=== PATIENT | female | born 1985 | race Caucasian/White ===

== ENCOUNTER 2017-11-06 19:03 | Emergency (ER) | payer OTHER ==
[~2017-11-06] VITALS: Ht 152.4 cm; Wt 54.5 kg
[2017-11-06] MEDS ORDERED: NARCAN4 MG NS (20:03)
[2017-11-06 22:10] VITALS: BP 103/82
== END 2017-11-06 22:17 | disposition home or self-care (01) ==
LOC: EME 19:03
DX: T40.1X1A Poisoning by heroin, accidental (unintentional), initial encounter (principal); B19.20 Unspecified viral hepatitis C without hepatic coma
CPT/HCPCS: 71045; 99281; 99285; J1885; J2405; J7030

== ENCOUNTER 2017-11-17 20:52 | Emergency (ER) | payer OTHER ==
[~2017-11-17] VITALS: Ht 152.4 cm; Wt 70.1 kg
[~2017-11-17 20:52] MED LIST: NARCAN4 MG NS
[2017-11-17 22:45] VITALS: BP 114/74
== END 2017-11-18 00:11 | disposition home or self-care (01) ==
LOC: EME 20:52
DX: S61.411A Laceration without foreign body of right hand, initial encounter (principal); S91.311A Laceration without foreign body, right foot, initial encounter; W25.XXXA Contact with sharp glass, initial encounter; W22.8XXA Striking against or struck by other objects, initial encounter; Z23 Encounter for immunization
CPT/HCPCS: 73130; 99281; 99284

== ENCOUNTER 2017-11-27 13:55 | Emergency (ER) | payer OTHER ==
[~2017-11-27] VITALS: Ht 152.4 cm; Wt 48.6 kg
[2017-11-27] MEDS ORDERED: NARCAN4 MG NS (17:04)
[2017-11-27 18:45] VITALS: BP 97/69
== END 2017-11-27 18:57 | disposition home or self-care (01) ==
LOC: EME 13:55
DX: F11.20 Opioid dependence, uncomplicated (principal); B19.20 Unspecified viral hepatitis C without hepatic coma; F32.9 Major depressive disorder, single episode, unspecified; F17.200 Nicotine dependence, unspecified, uncomplicated; Z88.6 Allergy status to analgesic agent; Z88.8 Allergy status to other drugs, medicaments and biological substances
CPT/HCPCS: 99281; 99285

== ENCOUNTER 2017-11-29 14:37 | Emergency (ER) | payer OTHER ==
[~2017-11-29] VITALS: Ht 152.4 cm; Wt 45.8 kg
[2017-11-29] MEDS ORDERED: BACTRIM,SEPT1 TABLET PO (16:56)
[2017-11-29 17:21] VITALS: BP 125/74
[2017-11-30] MEDS ORDERED: CLEOCIN300 MG PO (16:16)
== END 2017-11-29 17:23 | disposition home or self-care (01) ==
LOC: EME 14:37
PROC: 0H9GXZZ Drainage of Left Hand Skin, External Approach (ICD-10-PCS; principal; 2017-11-29)
DX: L03.012 Cellulitis of left finger (principal)
CPT/HCPCS: 99281; 99284; S0020

== ENCOUNTER 2017-11-30 13:41 | Emergency (ER) | payer OTHER ==
[~2017-11-30] VITALS: Ht 152.4 cm; Wt 45.4 kg
[~2017-11-30 13:41] MED LIST changes: +BACTRIM,SEPT1 TABLET PO
[2017-11-30] MEDS ORDERED: CLEOCIN300 MG PO (16:16)
[2017-11-30 16:45] VITALS: BP 135/83
== END 2017-11-30 16:45 | disposition home or self-care (01) ==
LOC: EME 13:41
DX: L03.012 Cellulitis of left finger (principal); R60.0 Localized edema; F11.21 Opioid dependence, in remission; Z87.891 Personal history of nicotine dependence
CPT/HCPCS: 99281; 99284; J1885